=== PATIENT | male | born 1960 ===

== ENCOUNTER 2021-07-09 14:01 | Outpatient (CLI) | payer OTHER | END 2021-07-09 15:00 | disposition home or self-care (01) | LOC: LAB 14:01 | PROVIDERS: ATTEND Urology | DX: R97.20 Elevated prostate specific antigen [PSA] (principal) ==

== ENCOUNTER 2021-08-01 07:21 | Outpatient (CLI) | payer OTHER | END 2021-08-01 07:30 | disposition home or self-care (01) | LOC: SONOGRAMA 07:21 | PROVIDERS: ATTEND Urology | DX: C61 Malignant neoplasm of prostate (principal); D12.9 Benign neoplasm of anus and anal canal; R97.20 Elevated prostate specific antigen [PSA] ==